=== PATIENT | male | born 1985 | race Caucasian/White ===

== ENCOUNTER 2017-12-20 17:53 | Emergency (ER) | payer SELFPAY ==
[2017-12-20] MEDS ORDERED: VANCOMYCIN HCL INJ 1000 MG VIAL IV ONE ×2 (19:05→21:15)
--- NOTE | 2017-12-20 19:07 | ER Document Report ---
ED Medical Screen (RME) - General Chief Complaint: Shoulder Pain Stated Complaint: SHOULDER INJURY Time Seen by Provider: 12/20/17 18:57 Notes: 32 years old male was diagnosed with MRSA, due to infection and abscess over the left shoulder joint. Treated at [facility] with IV vancomycin. 3 times a day. He got some dispute with the staff and signed AMA and came to the ED. Expecting he to be admitted and given IV antibiotic here in the hospital. TRAVEL OUTSIDE OF THE [place] IN LAST 30 DAYS: No - Related Data Allergies/Adverse Reactions: Penicillins Allergy (Verified 12/20/17 18:50) Past Medical History Renal/ Medical History: Denies: Hx Peritoneal Dialysis Skin Medical History: Reports Hx Cellulitis - from shooting up heroine Past Surgical History: Reports: Hx Orthopedic Surgery - Lt shoulder Physical Exam - Vital signs Vitals: Temp Pulse Resp BP Pulse Ox 98.3 F 122 H 16 147/89 H 100 12/20/17 18:07 12/20/17 18:07 12/20/17 18:07 12/20/17 18:07 12/20/17 18:07 Course - Vital Signs Vital signs: Temp Pulse Resp BP Pulse Ox 98.3 F 122 H 16 147/89 H 100 12/20/17 18:07 12/20/17 18:07 12/20/17 18:07 12/20/17 18:07 12/20/17 18:07
[2017-12-20 21:03] LABS: ABSOLUTE BASOPHILS # (AUTO) 0.1 10^3/uL (0.0-0.2); ABSOLUTE EOSINOPHILS # (AUTO) 0.2 10^3/uL (0.0-0.6); ABSOLUTE LYMPHOCYTES (AUTO) 1.8 10^3/uL (0.5-4.7); ABSOLUTE MONOCYTES (AUTO) 1.4 10^3/uL (0.1-1.4); ABSOLUTE NEUT (AUTO) 7.7 10^3/uL (1.7-8.2); BASOPHILS % (AUTO) 0.8 % (0-2); EOSINOPHILS % (AUTO) 1.3 % (0-6); HEMATOCRIT 30.7 % (37.9-51.0); HEMOGLOBIN 10.5 g/dL (13.5-17.0); LYMPHOCYTES % (AUTO) 15.8 % (13-45); MEAN CORPUSCULAR HEMOGLOBIN 28.9 pg (27.0-33.4); MEAN CORPUSCULAR HGB CONC 34.1 g/dL (32.0-36.0); MEAN CORPUSCULAR VOLUME 85 fl (80-97); MONOCYTES % (AUTO) 12.7 % (3-13); PLATELET COUNT 955 10^3/uL (150-450); RED BLOOD COUNT 3.62 10^6/uL (4.35-5.55); RED CELL DISTRIBUTION WIDTH 14.9 % (11.5-14.0); SEGMENTED NEUTROPHILS % (AUTO) 69.4 % (42-78); TOTAL CELLS COUNTED % (AUTO) 100 %; WHITE BLOOD COUNT 11.1 10^3/uL (4.0-10.5)
[2017-12-20] MEDS ORDERED: KETOROLAC TROMETHAMINE INJ/PF 30 MG/1 ML SDV IV ONE (21:15)
--- NOTE | 2017-12-20 21:20 | ER Document Report ---
ED Extremity Problem, Upper - General Chief Complaint: Shoulder Pain Stated Complaint: SHOULDER INJURY Time Seen by Provider: 12/20/17 18:57 Notes: Patient is a 32-year-old male that comes to the emergency department for chief complaint of left shoulder pain, he states that he was admitted at [place] 2 weeks ago for a septic shoulder, he had surgery to washout the shoulder, he was on IV vancomycin every 8 hours, he had a KANE which was negative over the past 48 hours, he states that he left AGAINST MEDICAL ADVICE this morning from [place] because a "psychotic ex-girlfriend showed up" and she started issues with the staff and things escalated causing him to leave. He states after he left he regretted it and immediately because he is concerned about his shoulder. He has not had a fever in over a week, he admits to pain in the shoulder, poor range of motion of the shoulder. He states that his prognosis and plan was awaiting decision by hospitalist and infectious disease he believes that he is not certain. He does have a history of IV drug abuse, he did use IV drugs prior to being placed in group home, while he was in group home he developed pain infection. He states that he was positive for MRSA in the joint. He smokes, drinks occasional alcohol, denies any surgeries otherwise, denies any medical history otherwise. TRAVEL OUTSIDE OF THE [place] IN LAST 30 DAYS: No - Related Data Allergies/Adverse Reactions: Penicillins Allergy (Verified 12/20/17 18:50) Past Medical History - General Information source: Patient - Social History Smoking Status: Current Every Day Smoker Frequency of alcohol use: None Drug Abuse: None Lives with: Family Family History: Reviewed & Not Pertinent Patient has suicidal ideation: No Patient has homicidal ideation: No Renal/ Medical History: Denies: Hx Peritoneal Dialysis Skin Medical History: Reports Hx Cellulitis - from shooting up heroine Past Surgical History: Reports: Hx Orthopedic Surgery - Lt shoulder Review of Systems - Review of Systems Constitutional: See HPI EENT: No symptoms reported Cardiovascular: No symptoms reported Respiratory: No symptoms reported Gastrointestinal: No symptoms reported Genitourinary: No symptoms reported Male Genitourinary: No symptoms reported Musculoskeletal: See HPI Skin: No symptoms reported Hematologic/Lymphatic: No symptoms reported Neurological/Psychological: No symptoms reported Physical Exam - Vital signs Vitals: Temp Pulse Resp BP Pulse Ox 98.3 F 122 H 16 147/89 H 100 12/20/17 18:07 12/20/17 18:07 12/20/17 18:07 12/20/17 18:07 12/20/17 18:07 - Notes Notes: GENERAL: Alert, interacts well. No acute distress. HEAD: Normocephalic, atraumatic. EYES: Pupils equal, round, and reactive to light. Extraocular movements intact. ENT: Oral mucosa moist, tongue midline. NECK: Full range of motion. Supple. Trachea midline. LUNGS: Clear to auscultation bilaterally, no wheezes, rales, or rhonchi. No respiratory distress. HEART: Borderline tachycardia, normal rhythm, no murmur. ABDOMEN: Soft, non-tender. Non-distended. Bowel sounds present in all 4 quadrants. EXTREMITIES: Postsurgical wounds in 3 places over the left shoulder with Steri- Strips in place, warmth but no overt erythema or severe tenderness, range of motion of the left shoulder is very limited and painful. 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 BACK: no cervical, thoracic, lumbar midline tenderness. No saddle anesthesia, normal distal neurovascular exam. NEUROLOGICAL: Alert and oriented x3. Normal speech. [cranial nerves II through XII grossly intact]. PSYCH: Normal affect, normal mood. Calm and even. SKIN: Warm, dry, normal turgor. No rashes or lesions noted. Course - Re-evaluation Re-evalutation: Patient mildly tachycardic, not febrile, he is calm, cooperative, well- appearing. There is pain and minimal swelling at the left shoulder, postoperative wounds covered with Steri-Strips, no overt erythema or severe pain. He has limited and painful range of motion. CBC shows mild leukocytosis with no shift, no bandemia. Thrombocytosis. Chemistry unremarkable except for hypoglycemia, patient given nourishment. Lactic acid is not elevated. Discussed with patient and dad in detail. Discussed with Dr. Gonzalez. We do not have transport available from here to [place] that is cleared either by air or ground. Dad states that he will take patient to [place] if need be. Patient states that he is in full agreement with going back, states he feels like he made a mistake and leaving this morning and it was only for a social situation which he feels has resolved. Will discuss with [facility] first. Discussed with Dr. Joseph, hospitalist, discussed patient presentation, workup, recent medical history. Because we do not have his surgeon here for surgical follow-up, because we do not have infectious disease here, patient will be transferred back to [facility]. [facility] updated us, patient accepted for ED to ED transfer. Patient has been infused a dose of vancomycin already, patient will go directly to the emergency department. Patient and father state understanding and agreement with plan. - Vital Signs Vital signs: Temp Pulse Resp BP Pulse Ox 98 F 110 H 16 132/82 H 99 12/20/17 23:21 12/20/17 23:21 12/20/17 23:21 12/20/17 23:21 12/20/17 23:21 - Laboratory Result Diagrams: 12/20/17 19:58 12/20/17 19:58 Laboratory results interpreted by me: 12/20/17 12/20/17 19:58 19:58 WBC 11.1 H RBC 3.62 L Hgb 10.5 L Hct 30.7 L RDW 14.9 H Plt Count 955 H Glucose 73 L Discharge - Discharge Clinical Impression: Septic joint of left shoulder region Qualifiers: Septic arthritis organism: due to unspecified organism Qualified Code(s): M00.9 - Pyogenic arthritis, unspecified Left shoulder pain Qualifiers: Chronicity: acute Qualified Code(s): M25.512 - Pain in left shoulder Condition: Stable Disposition: [facility]
[2017-12-20 21:24] LABS: ALANINE AMINOTRANSFERASE 26 U/L (21-72); ALBUMIN 3.8 g/dL (3.5-5.0); ALKALINE PHOSPHATASE 90 U/L (38-126); ANION GAP 10 (5-19); ASPARTATE AMINO TRANSFERASE 19 U/L (17-59); BILIRUBIN,DIRECT 0.4 mg/dL (0.0-0.4); BILIRUBIN,TOTAL 0.4 mg/dL (0.2-1.3); BLOOD UREA NITROGEN 15 mg/dL (7-20); CALCIUM 9.6 mg/dL (8.4-10.2); CARBON DIOXIDE 27 mmol/L (22-30); CHLORIDE 101 mmol/L (98-107); GLUCOSE 73 mg/dL (75-110); POTASSIUM 4.4 mmol/L (3.6-5.0); SODIUM 138.2 mmol/L (137-145); TOTAL PROTEIN 8.2 g/dL (6.3-8.2)
[2017-12-20 23:27] VITALS: BP 132/82
[2017-12-21 01:24] LABS: URINE AMPHETAMINES SCREEN NEGATIVE; URINE BARBITURATES SCREEN NEGATIVE; URINE BENZODIAZEPINES SCREEN NEGATIVE; URINE COCAINE SCREEN NEGATIVE; URINE MARIJUANA (THC) SCREEN NEGATIVE; URINE METHADONE SCREEN NEGATIVE; URINE PHENCYCLIDINE SCREEN NEGATIVE
== END 2017-12-20 23:20 | disposition short-term general hospital (02) ==
LOC: ER 17:53
DX: F17.200 Nicotine dependence, unspecified, uncomplicated (principal); M00.9 Pyogenic arthritis, unspecified; M25.512 Pain in left shoulder
CPT/HCPCS: 99284; 96375; 96365; 96366; 36415; 87040; 85025; 80053; 80307; 83605; J1885; J3370